=== PATIENT | female | born 1970 | race Caucasian/White ===

== ENCOUNTER 2017-12-05 16:16 | Emergency (ER) | payer MEDICARE, MEDICAID ==
[2017-12-05] MEDS ORDERED: Acetaminophen 325 MG Tab ONE (16:38)
--- NOTE | 2017-12-05 17:08 | EDM.PDOC ---
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, stomach felt like it was a knot, chest felt tight, head was spinning, stood and walked to med room and says she passed out for 30 seconds, lay on the floor for 1h as was "too weak to get up" BP 170/60 at work, baseline is 110/65 per pt, now it is 133/64 pt went home, called her senior actuarial analyst, his nurse told her to come to ED pt shaking her head rapidly from side to side when I walked in the room which she said "she does sometimes", then did it again alert, conversant vss, EKG unremarkable, labs pending lives alone on multiple meds, list reviewed Medial chest Pain Score (Numeric/FACES): 5 - Related Data Allergies Allergy/AdvReac Type Severity Reaction Status Date / Time No Known Allergies Allergy Verified 03/29/16 13:37 Home Meds: Home Meds Acetaminophen [Acetaminophen Extra Strength] 1,000 mg PO ASDIRECTED PRN [History] Benztropine [Cogentin] 0.5 mg PO BID 03/29/16 [History] DULoxetine [Cymbalta] 30 mg PO DAILY 03/29/16 [History] Levothyroxine [Synthroid] 100 mcg PO DAILY 03/29/16 [History] [place] Carbonate 600 mg PO BEDTIME 03/29/16 [History] Omeprazole 20 mg PO BIDAC 03/29/16 [History] Pregabalin [Lyrica] 200 mg PO BID 03/29/16 [History] Tretinoin [Retin-A 0.025% Cream] 1 applic TOP BEDTIME 03/29/16 [History] aMILoride [Midamor] 5 mg PO DAILY 03/29/16 [History] lamoTRIgine [LaMICtal] 200 mg PO DAILY 03/29/16 [History] traZODone 100 mg PO BEDTIME 03/29/16 [History] Lurasidone [Latuda] 20 mg PO DAILY 12/05/17 [History] aMILoride HCl [Amiloride HCl] 5 mg PO DAILY 12/05/17 [History] atorvaSTATin [Lipitor] 10 mg PO BEDTIME 12/05/17 [History] Past Medical History Cardiovascular History: Reports: High Cholesterol, Hypertension, Syncope, Other (See Below) Other Cardiovascular History: HYPERCALCEMIA Respiratory History: Reports: Sleep Apnea Gastrointestinal History: Reports: GERD Genitourinary History: Reports: Acute Renal Failure, Urinary Incontinence Other Genitourinary History: BLADDER SUSPENSION Other OB/BYN History: ABNORMAL PAP, IUD Musculoskeletal History: Reports: Back Pain, Chronic, Fibromyalgia Other Musculoskeletal History: BILAT HIP BURSITIS Neurological History: Reports: Vertigo Other Neuro History: RESTLESS LEG SYNDROME Psychiatric History: Reports: Anxiety, Bipolar, Depression Endocrine/Metabolic History: Reports: Diabetes, Type II, Hypothyroidism, Obesity /BMI 30+, Vitamin D Deficiency - Past Surgical History Female Surgical History: Reports: Breast Biopsy Musculoskeletal Surgical History: Reports: Arthroscopic Knee Other Musculoskeletal Surgeries/Procedures:: LAMINOTOMY WITH PARTIAL FASETECTOMY FORAMINOTOMY Social & Family History - Tobacco Use Smoking Status *Q: Never Smoker - Recreational Drug Use Recreational Drug Use: No ED ROS GENERAL - Review of Systems Review Of Systems: See Below Constitutional: Reports: Weakness HEENT: Reports: No Symptoms Respiratory: Reports: No Symptoms Cardiovascular: Reports: No Symptoms Endocrine: Reports: No Symptoms GI/Abdominal: Reports: No Symptoms : Reports: No Symptoms Musculoskeletal: Reports: No Symptoms Skin: Reports: No Symptoms Neurological: Reports: Dizziness, Weakness Psychiatric: Reports: Anxiety Hematologic/Lymphatic: Reports: No Symptoms Immunologic: Reports: No Symptoms ED EXAM, GENERAL - Physical Exam Exam: See Below Exam Limited By: No Limitations General Appearance: Alert, WD/WN, No Apparent Distress Eye Exam: Bilateral Eye: Normal Inspection, PERRL Ears: Normal External Exam Nose: Normal Inspection, Normal Mucosa, No Blood Throat/Mouth: Normal Inspection, Normal Lips, Normal Teeth, Normal Gums, Normal Oropharynx, Normal Voice, No Airway Compromise Head: Atraumatic Neck: Normal Inspection, Supple, Non-Tender, Full Range of Motion Respiratory/Chest: No Respiratory Distress, Lungs Clear, Normal Breath Sounds, No Accessory Muscle Use, Chest Non-Tender Cardiovascular: Regular Rate, Rhythm, No Edema, No JVD, No Rub, Other (2/6 DARI at LSB) GI/Abdominal: Normal Bowel Sounds, Soft, Non-Tender, No Distention Back Exam: Normal Inspection, Full Range of Motion, NT Extremities: Normal Inspection, Normal Range of Motion, Non-Tender, Normal Capillary Refill, No Pedal Edema Neurological: Alert, Oriented, CN II-XII Intact, Normal Cognition, No Motor/ Sensory Deficits Psychiatric: Normal Affect, Normal Mood Skin Exam: Warm, Dry, Intact, Normal Color, No Rash Lymphatic: No Adenopathy Course - Vital Signs Last Recorded V/S: Last Vital Signs Temp 38.3 C H 12/05/17 18:00 Pulse 83 12/05/17 16:40 Resp 18 12/05/17 18:00 BP 134/64 12/05/17 16:40 Pulse Ox 98 12/05/17 18:00 Orthostatic Blood Pressure [ 165/137 Standing] Orthostatic Blood Pressure [ 118/70 Sitting] Orthostatic Blood Pressure [ 120/51 Supine] - Orders/Labs/Meds Orders: Active Orders 24 hr Category Date Time Status EKG Documentation Completion [RC] ASDIRECTED Care 12/05/17 16:40 Active Orthostatic Vital Signs [RC] ASDIRECTED Care 12/05/17 16:59 Active EKG 12 Lead [EK] Routine Ther 12/05/17 16:40 Ordered Labs: Laboratory Tests 12/05/17 12/05/17 12/05/17 Range/Units 16:35 16:35 16:35 WBC 13.4 H (4.5-12.0) X10-3/uL RBC 4.20 (3.23-5.20) x10(6)uL Hgb 12.7 (11.5-15.5) g/dL Hct 37.4 (30.0-51.3) % MCV 89.0 (80-96) fL MCH 30.3 (27.7-33.6) pg MCHC 34.1 (32.2-35.4) g/dL RDW 12.1 (11.5-15.5) % Plt Count 430 H (125-369) X10(3)uL MPV 7.1 L (7.4-10.4) fL Add Manual Diff Yes Neutrophils % (Manual) 93 H (46-82) % Lymphocytes % (Manual) 4 L (13-37) % Monocytes % (Manual) 2 L (4-12) % Eosinophils % (Manual) 1 (0-5) % Sodium 138 (135-145) mmol/L Potassium 3.9 (3.5-5.3) mmol/L Chloride 101 (100-110) mmol/L Carbon Dioxide 28 (21-32) mmol/L BUN 16 (7-18) mg/dL Creatinine 0.7 (0.55-1.02) mg/dL Est Cr Clr Drug Dosing TNP Estimated GFR (MDRD) > 60 (>60) BUN/Creatinine Ratio 22.9 H (9-20) Glucose 119 H (80-116) mg/dL Calcium 9.3 (8.6-10.2) mg/dL Total Bilirubin 0.4 (0.1-1.3) mg/dL AST 14 (5-25) IU/L ALT 29 (12-36) U/L Alkaline Phosphatase 72 (56-112) IU/L Troponin I < 0.017 L (<0.017-0.056) ng/mL C-Reactive Protein (0.5-0.9) mg/dL Total Protein 7.7 (6.0-8.0) g/dL Albumin 3.8 (3.5-5.2) g/dL Globulin 3.9 g/dL Albumin/Globulin Ratio 1.0 Urine Color (YELLOW) Urine Appearance (CLEAR) Urine pH (5.0-6.5) Ur Specific [place] (1.010-1.025) Urine Protein (NEGATIVE) mg/dL Urine Glucose (UA) (NEGATIVE) mg/dL Urine Ketones (NEGATIVE) mg/dL Urine Occult Blood (NEGATIVE) Urine Nitrite (NEGATIVE) Urine Bilirubin (NEGATIVE) Urine Urobilinogen (NEGATIVE) mg/dL Ur Leukocyte Esterase (NEGATIVE) Urine RBC (0) Urine WBC (0) Ur Squamous Epith Cells (NS,R,O) Urine Bacteria (NS) 12/05/17 12/05/17 Range/Units 16:35 19:00 WBC (4.5-12.0) X10-3/uL RBC (3.23-5.20) x10(6)uL Hgb (11.5-15.5) g/dL Hct (30.0-51.3) % MCV (80-96) fL MCH (27.7-33.6) pg MCHC (32.2-35.4) g/dL RDW (11.5-15.5) % Plt Count (125-369) X10(3)uL MPV (7.4-10.4) fL Add Manual Diff Neutrophils % (Manual) (46-82) % Lymphocytes % (Manual) (13-37) % Monocytes % (Manual) (4-12) % Eosinophils % (Manual) (0-5) % Sodium (135-145) mmol/L Potassium (3.5-5.3) mmol/L Chloride (100-110) mmol/L Carbon Dioxide (21-32) mmol/L BUN (7-18) mg/dL Creatinine (0.55-1.02) mg/dL Est Cr Clr Drug Dosing Estimated GFR (MDRD) (>60) BUN/Creatinine Ratio (9-20) Glucose (80-116) mg/dL Calcium (8.6-10.2) mg/dL Total Bilirubin (0.1-1.3) mg/dL AST (5-25) IU/L ALT (12-36) U/L Alkaline Phosphatase (56-112) IU/L Troponin I (<0.017-0.056) ng/mL C-Reactive Protein 0.3 L (0.5-0.9) mg/dL Total Protein (6.0-8.0) g/dL Albumin (3.5-5.2) g/dL Globulin g/dL Albumin/Globulin Ratio Urine Color Yellow (YELLOW) Urine Appearance Clear (CLEAR) Urine pH 7.0 H (5.0-6.5) Ur Specific [place] 1.010 (1.010-1.025) Urine Protein Negative (NEGATIVE) mg/dL Urine Glucose (UA) Normal (NEGATIVE) mg/dL Urine Ketones Negative (NEGATIVE) mg/dL Urine Occult Blood Negative (NEGATIVE) Urine Nitrite Negative (NEGATIVE) Urine Bilirubin Negative (NEGATIVE) Urine Urobilinogen Normal (NEGATIVE) mg/dL Ur Leukocyte Esterase Negative (NEGATIVE) Urine RBC Not seen (0) Urine WBC 0-5 (0) Ur Squamous Epith Cells Rare (NS,R,O) Urine Bacteria Rare H (NS) Meds: Medications Discontinued Medications Generic Name Dose Route Start Last Admin Trade Name Marisa PRN Reason Stop Dose Admin Acetaminophen Confirm 12/05/17 16:38 12/05/17 17:40 Tylenol Administered 12/05/17 16:39 Not Given Dose 650 mg .ROUTE .STK-MED ONE Acetaminophen 650 mg 12/05/17 17:21 12/05/17 16:30 Tylenol PO 12/05/17 17:22 650 mg NOW ONE Administration Aspirin 324 mg 12/05/17 17:22 12/05/17 16:30 Aspirin PO 12/05/17 17:23 324 mg ONETIME ONE Administration Ondansetron HCl 4 mg 12/05/17 17:20 12/05/17 17:38 Zofran Odt PO 12/05/17 17:21 4 mg ONETIME ONE Administration - Re-Assessments/Exams Free Text/Narrative Re-Assessment/Exam: 12/05/17 20:02 not orthostatic, SBP actually inc'd 160 to 170 with standing, does have inc'd WBC, no localizing source, did develop a fever, u/a is neg Departure - Departure Time of Disposition: 20:03 Disposition: Home, Self-Care 01 Condition: Good Clinical Impression: Viral syndrome, Fever, Leukocytosis - Discharge Information Instructions: Fever, Adult Referrals: PCP,Not In Area [Primary Care Provider] - Forms: ED Department Discharge Additional Instructions: For fever and inflammation, take acetaminophen 500 mg 2 tabs 4 times day for 5 days, longer if needed. If you still have fever 30 minutes after taking acetaminophen, also take ibuprofen 200 mg 2 tabs. No work for 5 days. Rest. Limit activities for next several days. See your doctor in 4 days. Return to ED if you are feeling worse. Call your Physician or Return to Emergency Department if: * Your condition worsens in any way. * You develop fever greater than 100.4. * You have vomitting that does not stop with medications. * You have pain that is not controlled with medications. - My Orders Last 24 Hours: My Active Orders 12/05/17 16:40 EKG Documentation Completion [RC] ASDIRECTED EKG 12 Lead [EK] Routine 12/05/17 16:59 Orthostatic Vital Signs [RC] ASDIRECTED - Assessment/Plan Last 24 Hours: My Active Orders 12/05/17 16:40 EKG Documentation Completion [RC] ASDIRECTED EKG 12 Lead [EK] Routine 12/05/17 16:59 Orthostatic Vital Signs [RC] ASDIRECTED
[2017-12-05] MEDS ORDERED: Ondansetron 4 MG Tab.DIS PO ONE (17:20)
[2017-12-05] MEDS ORDERED: Acetaminophen 325 MG Tab PO ONE (17:21)
[2017-12-05] MEDS ORDERED: Aspirin 81 MG Tab.Chew PO ONE (17:22)
[2017-12-05 21:03] VITALS: BP 112/65
== END 2017-12-05 20:10 | disposition home or self-care (01) ==
LOC: FB.ED 16:16
DX: B34.9 Viral infection, unspecified (principal); D72.829 Elevated white blood cell count, unspecified; I10 Essential (primary) hypertension; E11.9 Type 2 diabetes mellitus without complications; E78.00 Pure hypercholesterolemia, unspecified; E03.9 Hypothyroidism, unspecified; F41.9 Anxiety disorder, unspecified; F32.9 Major depressive disorder, single episode, unspecified; Z79.899 Other long term (current) drug therapy
CPT/HCPCS: 36415; 80053; 81001; 84484; 85025; 86140; 87804; 93005; 99285; A9270; 99284

== ENCOUNTER 2018-03-10 22:53 | Emergency (ER) | payer MEDICARE, MEDICAID ==
--- NOTE | 2018-03-10 23:56 | EDM.PDOC ---
ED HPI GENERAL MEDICAL PROBLEM - General Chief Complaint: Neurological Problem Stated Complaint: visual white spots w headache Time Seen by Provider: 03/10/18 23:00 Source of Information: Reports: Patient, Old Records History Limitations: Reports: No Limitations - History of Present Illness INITIAL COMMENTS - FREE TEXT/NARRATIVE: Petrona reports sxs of visual white spots in both eyes beginning about 9 pm this evening, associated with some headache and dizziness. She laid on the floor waiting for sxs to subside, but they didn't, so EMS was summoned. Upon arrival, non FBS 160 mg%, alert orientated and apprehensive. She reported similar sxs from last ED visit on December 12, 2017, notes reviewed. Sxs have since improved since transport without intervention. L headache Pain Score (Numeric/FACES): 7 - Related Data Allergies Allergy/AdvReac Type Severity Reaction Status Date / Time No Known Allergies Allergy Verified 03/29/16 13:37 Home Meds: Home Meds Acetaminophen [Acetaminophen Extra Strength] 1,000 mg PO Q6H PRN 03/29/16 [ History] Benztropine [Cogentin] 0.5 mg PO BID 03/29/16 [History] DULoxetine [Cymbalta] 30 mg PO DAILY 03/29/16 [History] Levothyroxine [Synthroid] 100 mcg PO DAILY 03/29/16 [History] [place] Carbonate 600 mg PO BID 03/29/16 [History] Omeprazole 20 mg PO BIDAC 03/29/16 [History] Pregabalin [Lyrica] 200 mg PO BID 03/29/16 [History] Tretinoin [Retin-A 0.025% Cream] 1 applic TOP BEDTIME 03/29/16 [History] lamoTRIgine [Lamictal] 200 mg PO BEDTIME 03/29/16 [History] traZODone 100 mg PO BEDTIME 03/29/16 [History] Lurasidone [Latuda] 20 mg PO DAILY 12/05/17 [History] aMILoride HCl [Amiloride HCl] 5 mg PO DAILY 12/05/17 [History] atorvaSTATin [Lipitor] 10 mg PO BEDTIME 12/05/17 [History] Cholecalciferol (Vitamin D3) [Vitamin D3] 4,000 unit PO DAILY 03/10/18 [History] Clindamycin Phosphate [Cleocin T 1% Gel] 1 applic TOP DAILY 03/10/18 [History] Cyanocobalamin (Vitamin B-12) [B-12] 1,000 mcg PO DAILY 03/10/18 [History] Fluticasone Propionate [Flonase] 2 inh TORSTEN BID 03/10/18 [History] Polyethylene Glycol 3350 [MiraLAX] 1 pack PO DAILY 03/10/18 [History] cycloSPORINE [Restasis] 1 each EYEBOTH BID 03/10/18 [History] metFORMIN [Glucophage] 500 mg PO BIDMEALS 03/10/18 [History] rOPINIRole [Requip] 3 mg PO BEDTIME 03/10/18 [History] Past Medical History Cardiovascular History: Reports: High Cholesterol, Hypertension, Syncope, Other (See Below) Other Cardiovascular History: HYPERCALCEMIA Respiratory History: Reports: Sleep Apnea Gastrointestinal History: Reports: GERD Genitourinary History: Reports: Acute Renal Failure, Urinary Incontinence Other Genitourinary History: BLADDER SUSPENSION Other OB/BYN History: ABNORMAL PAP, IUD Musculoskeletal History: Reports: Back Pain, Chronic, Fibromyalgia Other Musculoskeletal History: BILAT HIP BURSITIS Neurological History: Reports: Vertigo Other Neuro History: RESTLESS LEG SYNDROME Psychiatric History: Reports: Anxiety, Bipolar, Depression Endocrine/Metabolic History: Reports: Diabetes, Type II, Hypothyroidism, Obesity /BMI 30+, Vitamin D Deficiency - Infectious Disease History Infectious Disease History: Reports: Chicken Pox - Past Surgical History Female Surgical History: Reports: Breast Biopsy Musculoskeletal Surgical History: Reports: Arthroscopic Knee Other Musculoskeletal Surgeries/Procedures:: LAMINOTOMY WITH PARTIAL FASETECTOMY FORAMINOTOMY Social & Family History - Family History Family Medical History: Noncontributory - Tobacco Use Smoking Status *Q: Never Smoker Years of Tobacco use: 1 Used Tobacco, but Quit: Yes Month/Year Tobacco Last Used: ??? - Caffeine Use Caffeine Use: Reports: Coffee, Soda - Recreational Drug Use Recreational Drug Use: No ED ROS GENERAL - Review of Systems Review Of Systems: See Below Constitutional: Reports: Malaise HEENT: Reports: Vision Change (visual white spots ) Respiratory: Reports: No Symptoms Cardiovascular: Reports: No Symptoms Endocrine: Reports: No Symptoms GI/Abdominal: Reports: No Symptoms : Reports: No Symptoms Musculoskeletal: Reports: Back Pain (chronic) Skin: Reports: No Symptoms Neurological: Reports: Dizziness, Headache, Tremors (occur spontaneously, suspected anxiety reaction) Psychiatric: Reports: Anxiety Hematologic/Lymphatic: Reports: No Symptoms Immunologic: Reports: No Symptoms ED EXAM, DIZZINESS - Physical Exam Exam: See Below Exam Limited By: No Limitations General Appearance: Alert, WD/WN, No Apparent Distress, Anxious, Obese Eye Exam: Bilateral Eye: EOMI, Normal Fundi, Normal Inspection, PERRL Ears: Normal External Exam, Normal TMs Nose: Normal Inspection Throat/Mouth: Normal Inspection, Normal Lips, Normal Teeth, Normal Gums, Normal Oropharynx, Normal Voice Head Exam: Normocephalic Neck: Normal Inspection, Supple, Non-Tender, Full Range of Motion Respiratory/Chest: Lungs Clear, Normal Breath Sounds, Chest Non-Tender Cardiovascular: Regular Rate, Rhythm, No Murmur GI/Abdominal: Normal Bowel Sounds, Soft, Non-Tender, No Organomegaly (Female) Exam: Deferred Rectal (Female) Exam: Deferred Neurological: Alert, CN II-XII Intact, Normal Plantar Flexion, Oriented x 3 Back Exam: Normal Inspection Extremities: Normal Inspection Psychiatric: Anxious Skin Exam: Warm, Dry, Intact, Normal Color, No Rash Course - Vital Signs Text/Narrative:: Petrona was observed while awaiting lab reports: CBC and BMP baseline, and sxs appeared to subside without intervention. Last Recorded V/S: Last Vital Signs Temp 36.4 C 03/10/18 22:53 Pulse 70 03/10/18 22:53 Resp 18 03/10/18 22:53 BP 145/71 H 03/10/18 22:53 Pulse Ox 98 03/10/18 22:53 - Orders/Labs/Meds Labs: Laboratory Tests 03/10/18 03/10/18 Range/Units 23:38 23:38 WBC 8.5 (4.5-12.0) X10-3/uL RBC 3.72 (3.23-5.20) x10(6)uL Hgb 11.1 L (11.5-15.5) g/dL Hct 33.3 (30.0-51.3) % MCV 89.6 (80-96) fL MCH 29.9 (27.7-33.6) pg MCHC 33.4 (32.2-35.4) g/dL RDW 12.5 (11.5-15.5) % Plt Count 417 H (125-369) X10(3)uL MPV 7.2 L (7.4-10.4) fL Neut % (Auto) 61.3 (46-82) % Lymph % (Auto) 26.4 (13-37) % [place] % (Auto) 6.8 (4-12) % Eos % (Auto) 5 (1.0-5.0) % Baso % (Auto) 1 (0-2) % Neut # (Auto) 5.2 (1.6-8.3) # Lymph # (Auto) 2.3 (0.6-5.0) # [place] # (Auto) 0.6 (0.0-1.3) # Eos # (Auto) 0.4 (0.0-0.8) # Baso # (Auto) 0.0 (0.0-0.2) # Sodium 139 (135-145) mmol/L Potassium 3.9 (3.5-5.3) mmol/L Chloride 103 (100-110) mmol/L Carbon Dioxide 28 (21-32) mmol/L BUN 12 (7-18) mg/dL Creatinine 0.8 (0.55-1.02) mg/dL Est Cr Clr Drug Dosing 82.26 mL/min Estimated GFR (MDRD) > 60 (>60) BUN/Creatinine Ratio 15.0 (9-20) Glucose 202 H D (80-116) mg/dL Calcium 9.1 (8.6-10.2) mg/dL Departure - Departure Time of Disposition: 00:28 Disposition: Home, Self-Care 01 Condition: Good Clinical Impression: Dizziness, nonspecific - Discharge Information Instructions: Vertigo, [id number] Referrals: PCP,None [Primary Care Provider] - Forms: ED Department Discharge Additional Instructions: Activity as tolerated. Continue same medications as prescribed. Follow up with your regular MD next month for checkup. Call for appt. - Problem List & Annotations (1) Dizziness, nonspecific SNOMED Code(s): 026823741, [id number] Code(s): R42 - DIZZINESS AND GIDDINESS Status: Acute Current Visit: Yes Annotation/Comment:: Dizziness NOS, possibly psychogenic. I did witness some ' tremors' that occurred during interview that she reports are related to anxiety. No meds dispensed. - Problem List Review Problem List Initiated/Reviewed/Updated: Yes - Assessment/Plan Plan: Follow up with PCP.
[2018-03-11 05:19] VITALS: BP 106/49
== END 2018-03-11 00:37 | disposition home or self-care (01) ==
LOC: FB.ED 22:53
DX: R42 Dizziness and giddiness (principal); E78.00 Pure hypercholesterolemia, unspecified; I10 Essential (primary) hypertension; E11.9 Type 2 diabetes mellitus without complications; E03.9 Hypothyroidism, unspecified; Z87.891 Personal history of nicotine dependence; Z79.899 Other long term (current) drug therapy; Z79.84 Long term (current) use of oral hypoglycemic drugs
CPT/HCPCS: 36415; 80048; 85025; 99283

== ENCOUNTER 2021-05-03 15:07 | Emergency (ER) | payer MEDICARE, MEDICAID ==
--- NOTE | 2021-05-03 16:56 | EDM.PDOC ---
ED HPI GENERAL MEDICAL PROBLEM - General Chief Complaint: Syncope Stated Complaint: SYNCOPAL EPISODE Time Seen by Provider: 05/03/21 15:20 Source of Information: Reports: Patient History Limitations: Reports: No Limitations - History of Present Illness INITIAL COMMENTS - FREE TEXT/NARRATIVE: Patient presented to the ED from the clinic because of a brief syncopal episode. She was feeling dizzy while sitting at work and then she was having mild headache followed by a syncopal episode. She had syncopal episodes in the past which is vasovagal in nature according to her. - Related Data Allergies Allergy/AdvReac Type Severity Reaction Status Date / Time No Known Allergies Allergy Verified 03/29/16 13:37 Home Meds: Home Meds Acetaminophen [Acetaminophen Extra Strength] 1,000 mg PO Q6H PRN 03/29/16 [History] Benztropine [Cogentin] 0.5 mg PO BID 03/29/16 [History] DULoxetine [Cymbalta] 30 mg PO DAILY 03/29/16 [History] Levothyroxine [Synthroid] 100 mcg PO DAILY 03/29/16 [History] [place] Carbonate 600 mg PO BID 03/29/16 [History] Omeprazole 20 mg PO BIDAC 03/29/16 [History] Pregabalin [Lyrica] 200 mg PO BID 03/29/16 [History] Tretinoin [Retin-A 0.025% Cream] 1 applic TOP BEDTIME 03/29/16 [History] lamoTRIgine [Lamictal] 200 mg PO BEDTIME 03/29/16 [History] traZODone 100 mg PO BEDTIME 03/29/16 [History] Lurasidone [Latuda] 20 mg PO DAILY 12/05/17 [History] aMILoride HCl [Amiloride HCl] 5 mg PO DAILY 12/05/17 [History] atorvaSTATin [Lipitor] 10 mg PO BEDTIME 12/05/17 [History] Cholecalciferol (Vitamin D3) [Vitamin D3] 4,000 unit PO DAILY 03/10/18 [History] Clindamycin Phosphate [Cleocin T 1% Gel] 1 applic TOP DAILY 03/10/18 [History] Cyanocobalamin (Vitamin B-12) [B-12] 1,000 mcg PO DAILY 03/10/18 [History] Fluticasone Propionate [Flonase] 2 inh TORSTEN BID 03/10/18 [History] cycloSPORINE [Restasis] 1 each EYEBOTH BID 03/10/18 [History] metFORMIN [Glucophage] 500 mg PO BIDMEALS 03/10/18 [History] polyethylene glycoL 3350 [MiraLAX] 1 pack PO DAILY 03/10/18 [History] rOPINIRole [Requip] 3 mg PO BEDTIME 03/10/18 [History] Past Medical History Cardiovascular History: Reports: High Cholesterol, Hypertension, Syncope, Other (See Below) Other Cardiovascular History: HYPERCALCEMIA Respiratory History: Reports: Sleep Apnea Gastrointestinal History: Reports: GERD Genitourinary History: Reports: Acute Renal Failure, Urinary Incontinence Other Genitourinary History: BLADDER SUSPENSION Other DIRECTOR OF OPERATIONS History: ABNORMAL PAP, IUD Musculoskeletal History: Reports: Back Pain, Chronic, Fibromyalgia Other Musculoskeletal History: BILAT HIP BURSITIS Neurological History: Reports: Vertigo Other Neuro History: RESTLESS LEG SYNDROME Psychiatric History: Reports: Anxiety, Bipolar, Depression Endocrine/Metabolic History: Reports: Diabetes, Type II, Hypothyroidism, Obesity/BMI 30+, Vitamin D Deficiency - Infectious Disease History Infectious Disease History: Reports: Chicken Pox - Past Surgical History Female Surgical History: Reports: Breast Biopsy Musculoskeletal Surgical History: Reports: Arthroscopic Knee Other Musculoskeletal Surgeries/Procedures:: LAMINOTOMY WITH PARTIAL FASETECTOMY FORAMINOTOMY Social & Family History - Family History Family Medical History: No Pertinent Family History - Caffeine Use Caffeine Use: Reports: Coffee, Soda ED ROS GENERAL - Review of Systems Review Of Systems: See Below Constitutional: Reports: No Symptoms HEENT: Reports: No Symptoms Respiratory: Reports: No Symptoms Cardiovascular: Reports: No Symptoms Endocrine: Reports: No Symptoms GI/Abdominal: Reports: No Symptoms : Reports: No Symptoms Musculoskeletal: Reports: No Symptoms Skin: Reports: No Symptoms Neurological: Reports: Syncope Psychiatric: Reports: No Symptoms Hematologic/Lymphatic: Reports: No Symptoms Immunologic: Reports: No Symptoms ED EXAM, NEURO - Physical Exam Exam: See Below Exam Limited By: No Limitations General Appearance: Alert, No Apparent Distress Ears: Normal External Exam Nose: Normal Inspection Throat/Mouth: Normal Inspection Head Exam: Atraumatic Neck: Normal Inspection Respiratory/Chest: No Respiratory Distress, Lungs Clear, Normal Breath Sounds Cardiovascular: Normal Peripheral Pulses, Regular Rate, Rhythm, No Edema GI/Abdominal: Normal Bowel Sounds, Soft, Non-Tender, No Organomegaly Neurological: Alert, Normal Mood/Affect, Normal Dorsiflexion, CN II-XII Intact, Normal Plantar Flexion, Normal Gait, Normal Reflexes Back Exam: Normal Inspection, Full Range of Motion Extremities: Normal Inspection, Normal Range of Motion, Non-Tender Psychiatric: Normal Affect #1 Interpretation EKG Date: 05/03/21 Time: 15:18 Rhythm: NSR Rate (Beats/Min): 74 [place]: Normal P-Wave: Present QRS: Normal ST-T: Normal QT: Normal NV/PQ Interval: 184 Comparison: NA - No Prior EKG EKG Interpretation Comments: NSR Course - Vital Signs Text/Narrative:: Lab/EKG/Head CT resul was reviewed and discussed with patient - Orders/Labs/Meds Orders: Active Orders 24 hr Category Date Time Status Head wo Cont [CT] Stat Exams 05/03/21 15:46 Ordered Labs: Laboratory Tests 05/03/21 05/03/21 Range/Units 15:30 15:30 WBC 9.3 (3.0-10.3) x10-3/uL RBC 4.11 (3.60-5.20) x10(6)uL Hgb 12.2 (11.4-15.5) g/dL Hct 37.3 (34.2-48.2) % MCV 90.8 (76.7-100.5) fL MCH 29.7 (23.9-33.9) pg MCHC 32.7 (31.9-34.8) g/dL RDW 13.8 (12.3-16.5) % Plt Count 417 (151-488) x10(3)uL MPV 7.7 (7.1-12.4) fL Neut % (Auto) 56.7 (30.8-76.2) % Lymph % (Auto) 29.5 (18.4-52.1) % [place] % (Auto) 8.0 (4.4-15.7) % Eos % (Auto) 4.9 (0.6-8.1) % Baso % (Auto) 0.9 (0.2-1.5) % Neut # (Auto) 5.3 (1.5-6.3) x10-3/uL Lymph # (Auto) 2.7 (1.0-4.4) x10-3/uL [place] # (Auto) 0.7 (0.3-1.0) x10-3/uL Eos # (Auto) 0.5 (0.0-0.8) x10-3/uL Baso # (Auto) 0.1 (0.0-0.1) x10-3/uL Sodium 140 (135-145) mmol/L Potassium 4.4 (3.5-5.3) mmol/L Chloride 105 (100-110) mmol/L Carbon Dioxide 27 (21-32) mmol/L BUN 13 (7-18) mg/dL Creatinine 1.0 (0.55-1.02) mg/dL Est Cr Clr Drug Dosing TNP Estimated GFR (MDRD) 59 L (>60) BUN/Creatinine Ratio 13.0 (9-20) Glucose 92 D (80-116) mg/dL Calcium 8.6 (8.6-10.2) mg/dL Departure - Departure Time of Disposition: 17:00 Disposition: Home, Self-Care 01 Condition: Good Clinical Impression: Vasovagal syncope - Discharge Information Additional Instructions: Please read discharge instructions on vasovagal syncope Increase oral fluids Rest for the day - My Orders Last 24 Hours: My Active Orders 05/03/21 15:46 Head wo Cont [CT] Stat - Assessment/Plan Last 24 Hours: My Active Orders 05/03/21 15:46 Head wo Cont [CT] Stat
--- NOTE | 2021-05-03 17:03 | CT ---
INDICATION: Syncope x2, right-sided headache, no history of trauma. CT HEAD WITHOUT CONTRAST: The paranasal sinuses and mastoid air cells were well aerated. No cranial abnormality was identified. No shift of midline structures, ventricular abnormalities or abnormal areas of density were identified. Rudd-white matter interface appeared normal. IMPRESSION 1. No acute intracranial abnormality. 2. Normal CT brain without contrast. Report was called to Dr. Smith at 1643 hours. [facility]
[2021-05-03 20:52] VITALS: BP 133/76; PULSE 74
== END 2021-05-03 17:10 | disposition home or self-care (01) ==
LOC: FB.ED 15:07
DX: R55 Syncope and collapse (principal); E78.00 Pure hypercholesterolemia, unspecified; I10 Essential (primary) hypertension; K21.9 Gastro-esophageal reflux disease without esophagitis; G25.81 Restless legs syndrome; E11.9 Type 2 diabetes mellitus without complications; Z79.84 Long term (current) use of oral hypoglycemic drugs; E03.9 Hypothyroidism, unspecified; E66.9 Obesity, unspecified; Z68.34 Body mass index [BMI] 34.0-34.9, adult; Z79.899 Other long term (current) drug therapy
CPT/HCPCS: 36415; 70450; 80048; 85025; 93005; 93010; 99284; 99284-25

== ENCOUNTER 2022-02-05 07:44 | Day surgery (SDC) | payer MEDICARE, MEDICAID ==
[2022-02-05] MEDS ORDERED: Lidocaine 1% PF 2 ML SDV INJECT ONE (07:45)
[2022-02-05] MEDS ORDERED: Lactated Ringers 1,000 ML IV SCH (07:45)
[2022-02-05] MEDS ORDERED: Propofol 200 MG/20 ML SDV IV ONE (07:45)
[2022-02-05] MEDS ORDERED: Sodium Chloride 0.9% 10 ML Syringe FLUSH PRN (07:45)
[2022-02-05 12:04] VITALS: BP 117/55; PULSE 64
== END 2022-02-05 12:00 | disposition home or self-care (01) ==
LOC: FB.SDS 07:44
PROVIDERS: ATTEND Surgery
DX: Z12.11 Encounter for screening for malignant neoplasm of colon (principal); K58.9 Irritable bowel syndrome, unspecified; K57.30 Diverticulosis of large intestine without perforation or abscess without bleeding; H54.7 Unspecified visual loss; E78.00 Pure hypercholesterolemia, unspecified; I10 Essential (primary) hypertension; K21.9 Gastro-esophageal reflux disease without esophagitis; F41.9 Anxiety disorder, unspecified; G47.33 Obstructive sleep apnea (adult) (pediatric); E03.9 Hypothyroidism, unspecified; E11.9 Type 2 diabetes mellitus without complications; E55.9 Vitamin D deficiency, unspecified; M79.7 Fibromyalgia; F31.9 Bipolar disorder, unspecified; E66.9 Obesity, unspecified; Z68.35 Body mass index [BMI] 35.0-35.9, adult; Z98.890 Other specified postprocedural states; Z79.899 Other long term (current) drug therapy; Z79.890 Hormone replacement therapy; Z79.84 Long term (current) use of oral hypoglycemic drugs; Z83.71 Family history of colonic polyps; Z87.891 Personal history of nicotine dependence
CPT/HCPCS: 00812-QZ; 81025; 82947; J2704; J7120